=== PATIENT | female | born 1970 | race Two or more races ===

== ENCOUNTER → 2024-02-20 | Outpatient (CLI) | payer BC, SELFPAY ==
--- NOTE | 2024-02-20 09:00 | XR_ITS ---
Examination: Breast ultrasound, unilateral, right complete Date and time of exam: February 19, 2023 0853 hours INDICATIONS: Mammogram January 05, 2024 10 mm oval mass indistinct margins upper outer right breast anterior depth Technique: Real-time valdovinos scale ultrasonographic imaging performed right breast including all 4 quadrants as well as nipple retroareolar and axillary region. Findings: 5:00 cyst 9 x 10 mm 8:00 cyst 6 x 7 mm 10:00 cyst 11 x 14 mm No solid nodules Smaller cysts evident IMPRESSION: BI-RADS Category 2: Benign findings
--- NOTE | 2024-02-20 09:45 | XR_ITS ---
Examination: Diagnostic digital mammography, unilateral, right Computer aided detection 3-D breast Tomosynthesis, unilateral Date and time of exam: February 20, 2024 0938 hours INDICATIONS: Mammogram January 05, 2024 10 mm oval mass partially indistinct margins upper outer right breast Technique: Nonmagnified MLO, CC views of the right breast have been obtained, reconstructed from 3-D Tomosynthesis images. R2 computer aided detection program utilized for evaluation of suspicious masses and/or abnormal calcifications. 3-D Tomosynthesis images obtained. Findings: The breast is extremely dense, which limits the sensitivity of mammography Circumscribed nodule nipple level right breast is noted, likely corresponding to cyst described on right breast sonogram today Impression: BI-RADS category 3: Probably benign findings One additional 6 month right mammogram follow-up is needed
== END | disposition home or self-care (01) ==
PROVIDERS: PCP Physician Assistant; Referring Provider Physician Assistant; Visit Provider Physician Assistant
DX: R92.331 Mammographic heterogeneous density, right breast (principal); N60.01 Solitary cyst of right breast
CPT/HCPCS: 76641; 77061; 77065; G0279

== ENCOUNTER → 2024-09-27 | Outpatient (CLI) | payer BC, SELFPAY ==
--- NOTE | 2024-09-27 08:15 | XR_ITS ---
Examination: Diagnostic digital mammography, unilateral, right Computer aided detection 3-D breast Tomosynthesis, unilateral Date and time of exam: September 27, 2024 0828 hours INDICATIONS: Mammogram February 20, 2024 circumscribed nodule nipple level right breast Technique: Nonmagnified MLO, CC views of the right breast have been obtained, reconstructed from 3-D Tomosynthesis images. R2 computer aided detection program utilized for evaluation of suspicious masses and/or abnormal calcifications. 3-D Tomosynthesis images obtained. Findings: The breast is extremely dense, which limits the sensitivity of mammography 4 mm circumscribed nodule inner lower right breast on the spot compression views Impression: BI-RADS category 0: Incomplete: Need additional imaging evaluation 4 mm circumscribed nodule inner lower right breast posterior depth on the spot compression views, recommend repeat right breast sonography follow-up
== END | disposition home or self-care (01) ==
LOC: CDIM 08:13
PROVIDERS: Referring Provider Physician Assistant; Visit Provider Physician Assistant
DX: N63.14 Unspecified lump in the right breast, lower inner quadrant (principal)
CPT/HCPCS: 77061; 77065; G0279